=== PATIENT | female | born 1985 | race Caucasian/White ===

== ENCOUNTER → 2018-09-17 16:42 | Outpatient (CLI) | payer OTHER, SELFPAY ==
[2018-09-17 18:41] LABS: Thyroid Stimulating Hormone 0.75 uIU/ml (0.358-3.740)
== END ==
PROVIDERS: Visit Provider Nurse Practitioner Family
DX: E01.0 Iodine-deficiency related diffuse (endemic) goiter (principal)
CPT/HCPCS: 36415; 84443

== ENCOUNTER → 2018-09-29 07:52 | Outpatient (CLI) | payer OTHER, SELFPAY ==
--- NOTE | 2018-09-29 07:56 | US_ITS ---
US kidney retroperitoneal comp Ordering Physician: Ritu Puri Patient Age: 33 years: Female HISTORY: ITS.REASON: FLANK PAINbilateral flank pain TECHNIQUE: Ultrasound both kidneys COMPARISON :None FINDINGS The kidneys are normal size with. No hydronephrosis or mass. Right kidney: 9.1 cm length x 4.5 cm x 5.9 cm Left kidney 9.1 x 1.8 and 3.7 cm. Cortex well-maintained with upper normal echogenicity. This may yield the slightly hypoechoic appearance renal pyramids, but still would consider within normal limits overall.. Good color Doppler survey of blood flow to both kidneys- this limited technique provides gross overview. Of such The spleen is included. Normal size and appearance. IMPRESSION: The kidneys appear normal in size. No hydronephrosis nor mass. Cortex of well-maintained.
--- NOTE | 2018-09-29 07:56 | US_ITS ---
ULTRASOUND THYROID PROCEDURE: Multiple sagittal & transverse ultrasound images of the thyroid. HISTORY: Physician palpated nodule left side. Patient feels something stuck in throat. Recent weight loss COMPARISON: ----- FINDINGS: Bilateral thyroid enlargement with bilateral thyroid nodules. Slight increase color Doppler flow to the thyroid bilateral. RIGHT LOBE: 4.3 cm length x 2.2 cm wide x 1.6 cm AP Nodule A: Upper pole right lobe there is a 10 mm length x 7.1 mm transverse x 5.6 mm AP. This nodule margins difficult to discern as it is near isoechoic solid nodule/ & with similar echogenicity to adjacent thyroid tissue. There is a small two millimeter Central cystic area which is more evident visually. Nodule B: 3.9 x 2 mm nodule likely debris-filled cyst central portion mid right lobe Nodule C: 5.7 mm length x 2.2 mm AP hypoechoic solid nodule at the anterior aspect of the lower pole. LEFT LOBE: 4.6 cm length x 1.7 cm wide x 1.2 cm AP. Nodule A: Upper pole left lobe. This Nodule measures up to 8.6 mm length x 5.2 mm AP.l There are 2 small cyst within this near isoechoic nodule the largest cyst measuring 4.5 mm length x 1.5 mm AP. The. Margin this nodule difficult to discern as it is similar echogenicity to adjacent thyroid. Nodule B: Hypoechoic, Likely debris-filled cyst. Anterior aspect of mid to upper left lobe. 7.4 mm maximum length x 3.2 mm X AP 5.7 mm transverse.. Nodule C: Small 3.1 mm cyst at the central gland, towards lower left lobe. . ISTHMUS: Appears normal thickness Less than 3 mm thickness.with no nodules. IMPRESSION Enlarged gland bilaterally with multiple nodules, as detailed in body of report. . Largest nodule upper pole right lobe measuring up to 10 mm length with single small central cyst. .Largest nodule left lobe is at upper pole measuring 8.6 mm length with 2 notable cyst within it
== END ==
PROVIDERS: PCP Nurse Practitioner Family; Visit Provider Nurse Practitioner Family
DX: E01.0 Iodine-deficiency related diffuse (endemic) goiter (principal); R10.9 Unspecified abdominal pain
CPT/HCPCS: 76536; 76770

== ENCOUNTER → 2019-09-11 08:56 | Outpatient (CLI) | payer OTHER, SELFPAY ==
--- NOTE | 2019-09-11 | CA_ITS ---
APPROVED REPORT Exam: Exercise Treadmill Technologist: freida harris, Ht: 5 ft 3 in Wt: 160 lbs BSA: 1.76 m2 HR: 97 bpm BP: 149/87 mmHg Indications: Tachycardia Medical History Allergies: Oxycodone, Biaxin, Imitrex, Codeine Stress Test Details Test: Rufino HR Resting HR: 115 bpm Max Heart Rate (APMHR): 185 bpm Max HR Achieved: 174 bpm Target HR (85% APMHR): 157 bpm % of APMHR: 94 Recovery HR: 121 bpm BP Resting BP: 149/87 mmHg Max BP: 150/70 mmHg Recovery BP: 140.0/77.0 mmHg ECG Resting ECG: Sinus Tachycardia Clinical Reason for Termination: Dyspnea Exercise duration: 09:00 min Highest Stage Achieved: Exercise capacity: 10.1 METs Stress ECG Conclusion Test stopped due to SOA, and leg pain. No CP noted. No arrhythmias noted. Less than 1.5mm segment changes. Negative stress test Test Summary REST . . . . . . . Standing REST . . . . . . . Sitting REST . . . . . . . Sitting REST 06:32 0.0 0.0 115 . 149/ 87 . . Stage 1 01:00 10.0 1.7 125 . . . . Stage 1 02:00 10.0 1.7 133 . 140/ 74 . . Stage 1 03:00 10.0 1.7 138 . 140/ 74 . . Stage 2 01:00 12.0 2.5 138 . . . . Stage 2 02:00 12.0 2.5 139 . . . . Stage 2 03:00 12.0 2.5 149 . 144/ 72 . . Stage 3 01:00 14.0 3.4 155 . . . . Stage 3 02:00 14.0 3.4 161 . . . . Stage 3 03:00 14.0 3.4 164 . 150/ 70 . Stop exercise at 09:00 RECOVERY 01:00 0.0 0.0 138 . . . . RECOVERY 02:00 0.0 0.0 131 . . . . RECOVERY 03:00 0.0 0.0 121 . . . . RECOVERY 04:00 0.0 0.0 121 . . . . RECOVERY 05:00 0.0 0.0 117 . . . . RECOVERY 05:28 0.0 0.0 0 . . . . Electronically signed by : Larry Cox, 09/11/2019 15:59:30
--- NOTE | 2019-09-11 08:57 | CA_ITS ---
APPROVED REPORT EXAM: Comprehensive 2D, Doppler, and color-flow Echocardiogram Supervisor [employer]: RT Tulio(R) Ht: 5 ft 3 in Wt: 164lbs BSA: 1.78 BP: 121/76 mmHg Indications: Tachycardia, smoker, family history of HD Echo Procedure The patient underwent an Exercise Stress Test using the Rufino Protocol. Blood pressure, heart rate, and EKG were monitored. An Echocardiogram was performed by dental equipment technician in four stages in quad fashion. At peak stress, four selected images were obtained and placed side by side with resting images for comparison. Stress Test Details Test: Exercise stress testing was performed using a Rufino protocol. HR Resting HR: 97 bpm Max Heart Rate (APMHR): 185 bpm Max HR Achieved: 164 bpm Target HR (85% APMHR): 157 bpm % of APMHR: 88 HR response to stress: Normal HR response to stress BP Resting BP: 121/81 mmHg Max BP: 150/70 mmHg BP response to stress: Normal blood pressure response to stress. ECG Resting ECG: SR Stress ECG: less than 1.[address] segment depression ST Change: Normal Arrhythmia: None Clinical Reason for Termination: Dyspnea Stress Symptoms: Dyspnea Exercise duration: 9 min Exercise capacity: 10.1 METs Overall Exercise Capacity for Age: Good Echo Findings The Pre-Stress Echocardiogram showed normal left ventricular contractility with an estimated Ejection Fraction of about >55%. The Post-Stress Echocardiogram showed normal left ventricular contractility with an estimated Ejection Fraction of about 60-65%. Other Information Study Quality: Good Conclusion 1. The EKG portion of the exercise stress echo is negative for ischemia, patient has good exercise capacity achieved 10.1 mets of workload on treadmill, the blood pressure response to exercise was adequate, there was no exercise-induced chest discomfort. 2. No echocardiographic evidence of exercise-induced segmental wall motion abnormality to suggest underlying ischemic heart disease. 3. Normal exercise stress echo. Electronically signed by : Larry Cox, 09/11/2019 14:01:44
[2019-09-11 09:19] LABS: Basophils # 0.1 K/mm3 (0-0.2); Basophils % 1.2 % (0.1-2.0); Eosinophils # 0.3 K/mm3 (0.0-0.4); Eosinophils % 3.9 % (0.1-12.0); Hematocrit 41.5 % (37.0-47.0); Hemoglobin 13.5 g/dL (12.2-16.2); Lymphocytes % 26.1 % (10-50); Mean Corpuscular HGB Conc 32.6 g/dL (31.8-35.4); Mean Corpuscular Hemoglobin 28.6 pg (27.0-31.2); Mean Corpuscular Volume 87.9 fl (81-99); Mean Platelet Volume 8.1 fl (7.4-10.4); Monocytes # 0.3 K/mm3 (0.1-1.0); Monocytes % 4.4 % (1.7-9.3); Neutrophils % 64.4 % (37.0-80.0); Platelet Count 354 K/mm3 (142-424); Red Blood Count 4.72 M/mm3 (4.20-5.40); Red Cell Distribution Width 12.8 % (11.5-17.5); White Blood Count 7.8 K/mm3 (4.8-10.8)
[2019-09-11 10:18] LABS: Alanine Aminotransferase 32 U/L (12-78); Albumin Level 3.9 gm/dL (3.4-5.0); Alkaline Phosphatase 101 U/L (46-116); Aspartate Amino Transferase 19 U/L (15-37); Bilirubin,Direct 0.1 mg/dL (0.0-0.2); Bilirubin,Indirect 0.3 mg/dL (0.0-0.9); Bilirubin,Total 0.4 mg/dL (0.2-1.0); Blood Urea Nitrogen 11 mg/dL (7-18); Calcium 8.4 mg/dL (8.5-10.1); Carbon Dioxide 26 mmol/L (21.0-32.0); Chloride 103 mmol/L (98-107); Chol/HDL Ratio 3.7 (1-3.5); Cholesterol 148 mg/dL (140-200); Creatinine,Serum 0.77 mg/dL (0.55-1.02); Estimated Glomerular Filt Rate 85 ml/min (>60); Free T4 (Free Thyroxine) 0.95 ng/dl (0.76-1.46); GFR (African American) 103 ML/MIN (>60); Glucose 91 mg/dL (74-106); HDL Cholesterol 40 mg/dL (29-89); LDL Cholesterol 99 mg/dL (0-130); Sodium 139 mmol/L (136-145); Thyroid Stimulating Hormone 1.92 uIU/ml (0.358-3.740); Total Protein,Serum 7.4 gm/dL (6.4-8.2); Triglycerides 43 mg/dL (30-200); VLDL Cholesterol 9 mg/dL (0-40)
[2019-09-12 11:05] LABS: Triiodothyronine (T3) Free 3.6 pg/mL (2.0-4.4)
== END ==
PROVIDERS: PCP Family Medicine; Visit Provider Physician Assistant
DX: R00.0 Tachycardia, unspecified (principal); R00.2 Palpitations; Z82.49 Family history of ischemic heart disease and other diseases of the circulatory system
CPT/HCPCS: 36415; 80048; 80061; 80076; 84439; 84443; 84481; 85025; 93017; 93350

== ENCOUNTER → 2019-12-15 10:52 | Outpatient (CLI) | payer OTHER, SELFPAY ==
--- NOTE | 2019-12-15 10:56 | XR_ITS ---
PROCEDURE: XR ANKLE WT BEARING RT MIN 3V CLINICAL INDICATION: pain Twisting injury with pain COMPARISON: No exams were available for comparison FINDINGS: No fracture or dislocation. No lytic or blastic change. There is normal mineralization. The joint spaces are well-preserved. No significant degenerative/arthritic changes. No erosive changes evident. IMPRESSION: No acute finding Dictated by: Rodolfo Frederick MD 12/15/2019 13:05 Electronically signed by Rodolfo Frederick MD in [place] 12/15/2019 13:05
--- NOTE | 2019-12-15 10:56 | XR_ITS ---
PROCEDURE: XR FOOT WT BEARING RT 3V CLINICAL INDICATION: pain Posttraumatic pain COMPARISON: No exams were available for comparison FINDINGS: No fracture or dislocation. No lytic or blastic change. There is normal mineralization. The joint spaces are well-preserved. No significant degenerative/arthritic changes. No erosive changes evident. Other findings:None. IMPRESSION: No acute findings. Dictated by: Rodolfo Frederick MD 12/15/2019 13:07 Electronically signed by Rodlofo Frederick MD in [place] 12/15/2019 13:07
== END ==
PROVIDERS: PCP Family Medicine; Visit Provider Podiatrist
DX: M79.671 Pain in right foot (principal); M25.571 Pain in right ankle and joints of right foot
CPT/HCPCS: 73610; 73630

== ENCOUNTER → 2020-10-17 09:27 | Outpatient (CLI) | payer OTHER, SELFPAY | PROVIDERS: PCP Family Medicine; Visit Provider Nurse Practitioner Family | DX: Z20.822 Contact with and (suspected) exposure to COVID-19 (principal); U07.1 COVID-19 | CPT/HCPCS: U0003 ==

== ENCOUNTER 2020-12-20 02:31 | Outpatient (CLI) | payer OTHER, SELFPAY ==
[2020-12-20 02:31] VITALS: BP 124/84; PULSE 78; RESP 16; TEMP 37.2; O2SAT 98
[2020-12-20 02:35] VITALS: BMI 21.2
== END 2020-12-20 02:58 | disposition home or self-care (01) ==
LOC: INF 02:35
PROVIDERS: PCP Family Medicine; Visit Provider Emergency Medicine
DX: J32.9 Chronic sinusitis, unspecified (principal)
CPT/HCPCS: 96372

== ENCOUNTER 2021-01-16 00:37 | Emergency (ER) | payer OTHER, SELFPAY ==
[2021-01-16 00:45] VITALS: BP 136/78; PULSE 65; RESP 18; TEMP 36.6; O2SAT 100; BMI 24.6
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
[2021-01-16 01:18] VITALS: BP 114/73; PULSE 78; RESP 18; TEMP 36.8; O2SAT 98
== END 2021-01-16 01:23 | disposition home or self-care (01) ==
PROVIDERS: Emergency Provider Emergency Medicine; PCP Family Medicine
DX: S39.012A Strain of muscle, fascia and tendon of lower back, initial encounter (principal); S76.302A Unspecified injury of muscle, fascia and tendon of the posterior muscle group at thigh level, left thigh, initial encounter; X50.0XXA Overexertion from strenuous movement or load, initial encounter; Y92.69 Other specified industrial and construction area as the place of occurrence of the external cause; Y99.0 Civilian activity done for income or pay
CPT/HCPCS: 96372; 99282

== ENCOUNTER → 2021-03-01 13:31 | Outpatient (CLI) | payer OTHER, SELFPAY ==
--- NOTE | 2021-03-01 13:35 | XR_ITS ---
PROCEDURE: XR SINUS MIN 3V CLINICAL INDICATION: OTHER SINUSITIS,UNSPECIFIED CHRONICITY COMPARISON: No exams were available for comparison FINDINGS: The paranasal sinuses appear clear. The nasal septum is in the midline. The nasal bone is intact. IMPRESSION: No acute findings. Dictated by: Dr. Abdullahi Marmolejo MD 03/01/2021 14:25 Dr. Abdullahi Marmolejo MD in 03/01/2021 14:25
== END ==
PROVIDERS: PCP Family Medicine; Visit Provider Family Medicine
DX: J32.9 Chronic sinusitis, unspecified (principal)
CPT/HCPCS: 70220

== ENCOUNTER → 2021-10-03 16:00 | Outpatient (CLI) | payer MEDICAID, SELFPAY ==
[2021-10-03 14:11] LABS: Amphetamine/Metha Screen,Urine Negative ng/ml (<1000); Benzodiazepines Screen,Urine Positive ng/ml (<200)
[2021-10-03 14:12] LABS: Barbiturates Screen,Urine Positive ng/ml (<200)
[2021-10-03 14:14] LABS: Cannabinoid Screen,Urine Negative ng/ml (<50); Cocaine Screen,Urine Negative ng/ml (<300)
[2021-10-03 14:15] LABS: Methadone Screen,Urine Negative ng/ml (<300)
[2021-10-03 14:16] LABS: Opiate Screen,Urine Negative ng/ml (<300); Phencyclidine Screen,Urine Negative ng/ml (<25)
== END ==
PROVIDERS: Visit Provider Nurse Practitioner Family
DX: Z79.899 Other long term (current) drug therapy (principal)
CPT/HCPCS: 80305

== ENCOUNTER → 2021-10-11 15:29 | Outpatient (CLI) | payer MEDICAID, SELFPAY ==
--- NOTE | 2021-10-11 15:32 | XR_ITS ---
FINAL REPORT CLINICAL HISTORY: L Shoulder pain and swelling up into neck FINDINGS: LEFT SHOULDER Three views demonstrate no acute fracture or dislocation. The joint spaces appear normal. The visualized bony structures are well aligned. No soft tissue abnormality is seen. IMPRESSION: No acute process. Reviewed, Interpreted and Dictated by Jey Mehta III, MD Transcribed by Amy Leung Authenticated by Jey Mehta III, MD on 10/11/2021 04:50:20 PM [facility]
== END ==
PROVIDERS: PCP Nurse Practitioner Family; Visit Provider Nurse Practitioner Family
DX: M25.512 Pain in left shoulder (principal)
CPT/HCPCS: 73030

== ENCOUNTER 2021-10-20 13:33 | Emergency (ER) | payer BC, SELFPAY ==
[2021-10-20 13:40] VITALS: BP 104/78; PULSE 110; RESP 20; TEMP 36.7; O2SAT 95; BMI 26.5
--- NOTE | 2021-10-20 14:48 | HMH.EDUTC ---
[facility] [place] Clinical Impression: Nausea & vomiting Qualifiers: Vomiting type: unspecified Qualified Code(s): R11.2 - Nausea with vomiting, unspecified Disposition: Home, Self-Care Condition on Discharge: Good Instructions: Diarrhea, Nausea and Vomiting-Adult Additional Instructions: Drink extra fluids with and between meals. If you have difficulty drinking, try very small amounts of water or suck on ice chips. ? Avoid fruit juices, as these do not replace minerals and can actually increase diarrhea. ? Children and adults can use sports drinks to replenish electrolytes. Younger children and infants should use products formulated for children, like oral rehydration solutions. ? Eat food in small amounts and let your stomach recover. ? Get lots of rest. You may feel tired or weak. ? No greasy or fried foods for the next 24-48 hours BRAT diet Bananas Rice Apples and Wood ? Make sure to drink plenty of liquids ? Return if needed ? Straight to ER if any life threatening symptoms ? Zofran as prescribed ? Follow up with family doctor in the next 48-72 hours if no improvement or any worsening of symptoms Prescriptions: Ondansetron [Zofran 4mg ODT] 4 mg PO TIDP PRN #9 tab PRN Reason: Nausea Transmission Status: Pending to [facility]/pharmacy #[id number] Referrals: Kwasi Vasquez APRN [Primary Care Provider] - As needed Forms: Work/School Release Time of Disposition: 14:56 Medical Decision Making - Arsh Inquiry Pt receiving controlled substance: No Arsh was queried for this patient: No Vital Signs: 10/20/21 13:40 10/20/21 14:49 Temperature 98.0 F 98.0 F Temperature Source Oral Pulse Rate 110 H Pulse Rate [Right Brachial] 110 H Respiratory Rate 20 20 Blood Pressure 104/78 L Blood Pressure [Right Arm] 104/78 L Blood Pressure Mean [Right Arm] 86 Blood Pressure Source [Right Arm] Automatic Cuff Blood Pressure Position [Right Arm] Sitting 02 Sat by Pulse Oximetry 95 Oxygen Delivery Method Room Air Medical Decision Narrative: Patient state that she has taken zofran in the past without complications or reactions [facility] [place] - General Stated complaint: vomiting, nausea Time Seen by Provider: 10/20/21 14:50 Mode of Arrival: Ambulatory Source of Information: Patient Limitations: No Limitations Description of Symptoms (Recalled from Triage Doc. by RN): PATIENT C/O STOMACH BUG SINCE LAST NIGHT HEENT Symptoms (Recalled from RN notes): No Resp Symptoms (Recalled from RN notes): No Skin Symptoms (Recalled from RN notes): No MS Symptoms (Recalled from RN notes): No Functional Status (Recalled from RN notes): WNL - History of Present Illness Provider Complaint: Patient states that she has been having nausea and diarrhea States that everyone in the house has been havign stomach virus states that she didnt have anything to take for the nausea so she came in to get checked due to she couldnt go to work to day and needed to get a note - Related Data Home Medications Medication Instructions Recorded Confirmed ipratropium 20 mcg-albuterol 100 1 puff INHALATION Q6H 08/29/21 10/03/21 mcg/actuation mist for inhalation Previous Rx's Medication Instructions Recorded [id number] 1 cap PO Q6H PRN #10 cap 08/29/21 50 mg-300 mg-40 mg capsule loratadine-pseudoephedrine ER 10 1 tab PO DAILY #90 tab 08/29/21 mg-240 mg tablet,extended [id number] sertraline 100 mg tablet 100 mg PO HS #90 tab 08/29/21 cyclobenzaprine 10 mg tablet 10 mg PO TID PRN #60 tab 10/03/21 diazepam 5 mg tablet 5 mg PO BID PRN #60 tab 10/03/21 prednisone 20 mg tablet 20 mg PO BID 5 Days #10 tab 10/03/21 Ondansetron [Zofran 4mg ODT] 4 mg PO TIDP PRN #9 tab 10/20/21 Allergies Allergy/AdvReac Type Severity Reaction Status Date / Time oxycodone [From PERCOCET] Allergy Severe BOTTOMS Verified 10/03/21 11:07 OUT BP clarithromycin [From BIAXIN] Allergy Unknown Verified 10/03/21 11:07 codeine Allergy Un
[2021-10-20 14:49] VITALS: BP 104/78; PULSE 110; RESP 20; TEMP 36.7; O2SAT 95
== END 2021-10-20 15:07 | disposition home or self-care (01) ==
PROVIDERS: Emergency Provider Nurse Practitioner; PCP Nurse Practitioner Family
DX: R11.2 Nausea with vomiting, unspecified (principal)
CPT/HCPCS: 99212; G0463

== ENCOUNTER 2022-02-17 10:47 | Emergency (ER) | payer BC, SELFPAY ==
[2022-02-17 12:30] VITALS: BP 113/76; PULSE 76; RESP 19; TEMP 36.8; O2SAT 100; BMI 28.3
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
[2022-02-17 13:14] VITALS: BP 113/76; PULSE 76; RESP 19; TEMP 36.8; O2SAT 100
== END 2022-02-17 13:17 | disposition home or self-care (01) ==
LOC: UTC 10:50 → ER 12:47 → UTC 12:48
PROVIDERS: Emergency Provider Physician Assistant; PCP Emergency Medicine
DX: H69.83 Other specified disorders of Eustachian tube, bilateral (principal); T70.0XXA Otitic barotrauma, initial encounter; H92.01 Otalgia, right ear; W39.XXXA Discharge of firework, initial encounter
CPT/HCPCS: 99212; G0463

== ENCOUNTER 2022-06-08 10:48 | Emergency (ER) | payer OTHER, MEDICAID, SELFPAY ==
[2022-06-08 11:41] VITALS: BP 120/81; PULSE 103; RESP 16; TEMP 36.6; O2SAT 98; BMI 26.7
[2022-06-08 11:44] LABS: Adenovirus,PCR Not Detected (NotDetected); Bordetella Pertussis Not Detected (NotDetected); Chlamydophila Pneumoniae, PCR Not Detected (NotDetected); Coronavirus 229E Not Detected (NotDetected); Coronavirus NL63 Not Detected (NotDetected); Coronavirus OC43 Not Detected (NotDetected); Coronovirus HKU1,PCR Not Detected (NotDetected); Human Metapneumovirus Not Detected (NotDetected); Influenza A, PCR Not Detected (NotDetected); Influenza AH1, 2009 Not Detected (NotDetected); Influenza AH1, PCR Not Detected (NotDetected); Influenza AH3,PCR Not Detected (NotDetected); Influenza B, PCR Not Detected (NotDetected); Mycoplasma Pneumoniae, PCR Not Detected (NotDetected); Parainfluenza 1, PCR Not Detected (NotDetected); Parainfluenza 2, PCR Not Detected (NotDetected); Parainfluenza 3, PCR Not Detected (NotDetected); Parainfluenza 4, PCR Not Detected (NotDetected); Respiratory Syncytial Virus Not Detected (NotDetected); Rhinovirus/Enterovirus Not Detected (NotDetected)
[2022-06-08 11:51] LABS: UTC Influenza A Antigen Negative (Negative); UTC Strep Screen (Rapid) Negative (Negative)
[2022-06-08 11:52] LABS: UTC Influenza B Antigen Negative (Negative)
--- NOTE | 2022-06-08 11:59 | EXP.UTC ---
Discharge Plan Disposition Patient Disposition: Home, Self-Care Condition: Good Prescriptions Prescriptions: No Action Combivent Respimat 20-100 mcg/actuation mist 1 puff INHALATION Q6H loratadine-pseudoephedrine [Claritin-D 24 Hour] 10-240 mg tablet extended release 24 hr 1 tab PO DAILY Qty: 90 2RF cyclobenzaprine 10 mg tablet 10 mg PO TID PRN (Reason: muscle spasm) Qty: 60 0RF diazepam 5 mg tablet 5 mg PO BID PRN (Reason: anxiety) Qty: 60 0RF moldlwlwnz-uiotwwbkkovyh-gcnr 50-300-40 mg capsule 1 cap PO Q6H PRN (Reason: pain) Qty: 10 5RF ondansetron 4 MG tablet,disintegrating 4 mg PO TIDP PRN (Reason: Nausea) Qty: 9 0RF sertraline 100 mg tablet 100 mg PO HS pseudoephedrine HCl 120 MG tablet extended release 1 tab PO BID 10 Days Qty: 20 0RF fluticasone propionate 120 SPRAY bottle 1 spr NS DAILY 30 Days Qty: 1 0RF Referrals Follow up/Referrals: Eric Rosen MD [Primary Care Provider] - See instructions Activity Restrictions/Add. Instructions Additional Instructions/Restrictions: *Monitor Temp, Over the counter Motrin or Tylenol as directed/as needed Tylenol every 4 hours and Motrin every 6 hours (as long as your family doctor has told you that you can take it) for fever or pain. and straight to ER if unable to lower temp less than 101.0 after medication given *Warm salt water gargles may help to soothe the throat *Throat Lozenges? *Warm fluids like tea with honey may help to soothe the throat? *Sleep elevated *Humidifier/Vaporizer *Flonase 2 sprays in each nostril daily but be aware that it may take 2-3 days before you notice improvement *Bromfed may cause drowsiness. Know how it effects you (your child) before driving, caring for small child, or sending your child to school. Not other antihistamines/allergy medications while taking bromfed Your throat swab was sent for culture. Those results are typically sent to your primary care. Be sure to follow up in 2-3 days with your family doctor/primary care physician if no improvement so they can review those result and treat if necessary. If you don?t have a primary care doctor, I recommend you get one but in the mean time, you will have to return to a walk in clinic Follow up IMMEDIATELY for new or worsening symptoms or no Noticeable improvement over the next 48-72 hours. 911 for difficulty breathing or swallowing You were tested for today for Upper Respiratory Panel with COVID19 your test result should be back in the next 24-48 hours, you may check your results on the [facility] Clinical Impressions Clinical Impression: Viral upper respiratory tract infection Stand Alone Forms Stand Alone Forms: Work/School Release Instructions Patient Instructions: DI for Viral Upper Respiratory Infection -- Adult Discharge ED Provider: Yulissa Garcia [facility] [place] General Stated complaint: cough,fever,chills Mode of Arrival: Ambulatory Source of Information: Patient Limitations: No Limitations Time Seen by Provider: 06/08/22 11:59 Description of Symptoms (Recalled from Triage Doc. by RN): pt comes in with c/o cough, congestion, fever, body aches, chills. symptoms began saturday. pt has been exposed to covid and flu. HEENT Symptoms (Recalled from RN notes): Yes Resp Symptoms (Recalled from RN notes): Yes Skin Symptoms (Recalled from RN notes): No MS Symptoms (Recalled from RN notes): No Functional Status (Recalled from RN notes): n/a History of Present Illness Provider Complaint: Patient states that she has been exposed to COVID and the flu States that on Saturday she started feeling bad States that she has been having fever, chills, body aches, headache and nasal congestion Related Data Home Medications Medication Instructions Recorded Confirmed ipratropium 20 mcg-albuterol 100 1 puff inhalation Q6H 08/29/21 05/03/22 mcg/actuation mist for inhalation (Combivent Respimat) sertraline 100 m
[2022-06-08 12:08] VITALS: BP 120/81; PULSE 103; RESP 16; TEMP 36.6
[2022-06-08 14:47] LABS: Coronavirus 19, PCR Detected (NotDetected)
== END 2022-06-08 12:10 | disposition home or self-care (01) ==
PROVIDERS: Emergency Provider Nurse Practitioner; PCP Emergency Medicine
DX: U07.1 COVID-19 (principal)
CPT/HCPCS: 87581; 87632; 87798; 87804; 87880; 99212; C9803; G0463; U0003; U0005